=== PATIENT | male | born 1990 | race Caucasian/White ===

== ENCOUNTER → 2021-02-23 | Outpatient (CLI) | payer OTHER ==
[~2021-02-23] MED LIST: KETOTIFEN EYE DROPS EYEBOTH; LOPRESSOR 25 MG25 MG PO
== END ==
LOC: OPSV2 10:30
DX: Z01.810 Encounter for preprocedural cardiovascular examination (principal); R94.31 Abnormal electrocardiogram [ECG] [EKG]
CPT/HCPCS: 93005

== ENCOUNTER → 2021-02-27 | Day surgery (SDC) | payer OTHER ==
[~2021-02-27] VITALS: Ht 175.3 cm; Wt 68.0 kg
== END | disposition home or self-care (01) ==
LOC: OR 06:06
DX: J34.2 Deviated nasal septum (principal); J34.3 Hypertrophy of nasal turbinates; J34.89 Other specified disorders of nose and nasal sinuses; R09.81 Nasal congestion; R09.82 Postnasal drip; J30.9 Allergic rhinitis, unspecified; Z88.1 Allergy status to other antibiotic agents; Z88.5 Allergy status to narcotic agent; Z20.822 Contact with and (suspected) exposure to COVID-19
CPT/HCPCS: C1726; J0171; J0690; J1100; J2001; J2250; J2405; J2704; J2710; J3010; J7030; J7120